=== PATIENT | male | born 1980 ===

== ENCOUNTER 2018-09-03 09:15 | Emergency (ER) | payer OTHER ==
[2018-09-03 09:32] VITALS: BP 120/78; PULSE 57; RESP 20; TEMP 98.7; O2SAT 98
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
--- NOTE | 2018-09-03 10:42 | RAD ---
HISTORY: cough COMPARISON: None available TECHNIQUE: Chest PA and lateral FINDINGS: Examination limited by habitus and hypoinflation. LUNGS: No focal consolidation. Please note that chest x-ray has limited sensitivity for the detection of pulmonary masses. PLEURA: No significant pleural effusion identified. No definite pneumothorax . CARDIOVASCULAR: Heart size appears within normal limits. OSSEOUS STRUCTURES: No acute osseous abnormality identified. VISUALIZED UPPER ABDOMEN: Unremarkable. OTHER FINDINGS: None. IMPRESSION: Hypoinflation.
== END 2018-09-03 10:59 | disposition home or self-care (01) ==
LOC: C.ER 09:15
DX: Z77.098 Contact with and (suspected) exposure to other hazardous, chiefly nonmedicinal, chemicals (principal)